=== PATIENT | male | born 1960 | race Hispanic/Latino ===

== ENCOUNTER → 2023-03-15 | Outpatient (CLI) | payer OTHER ==
[2023-03-15 08:51] LABS: INR < 0.93 (0.85-1.15)
[2023-03-15 08:52] LABS: PARTIAL THROMBOPLASTIN TIME 32.7 SEC (26.3-35.5)
== END | disposition home or self-care (01) ==
LOC: RAH 08:06
PROVIDERS: ATTEND Student in an Organized Health Care Education/Training Program
DX: R59.0 Localized enlarged lymph nodes (principal); Z79.01 Long term (current) use of anticoagulants; Z79.899 Other long term (current) drug therapy
CPT/HCPCS: 36415; 38505; 76942; 85610; 85730; 88184; 88185; 88189; 88305; 88341; 88342; 88360

== ENCOUNTER → 2023-09-09 | Outpatient (CLI) | payer OTHER | END | disposition home or self-care (01) | LOC: RAH 13:13 | PROVIDERS: ATTEND Student in an Organized Health Care Education/Training Program | DX: R59.0 Localized enlarged lymph nodes (principal) | CPT/HCPCS: 76882 ==

== ENCOUNTER → 2023-10-29 | Outpatient (CLI) | payer OTHER | END | disposition home or self-care (01) | LOC: RAH 13:16 | PROVIDERS: ATTEND Student in an Organized Health Care Education/Training Program | DX: R59.0 Localized enlarged lymph nodes (principal) | CPT/HCPCS: 76882 ==

== ENCOUNTER 2024-02-07 06:40 | Day surgery (SDC) | payer OTHER ==
[2024-02-03 09:40] LABS: BASOPHILS # (AUTO) 0.05 K/uL (0.00-0.20); BASOPHILS % (AUTO) 0.5 % (0.0-5.0); EOSINOPHILS # (AUTO) 0.44 K/uL (0.00-0.70); EOSINOPHILS % (AUTO) 4.5 % (0.0-8.0); HEMATOCRIT 43.6 % (42-54); IMMATURE GRANULOCYTE ABSOLUTE 0.03 K/uL (0-1); LYMPHOCYTES # (AUTO) 1.9 K/uL (1.0-4.8); LYMPHOCYTES % (AUTO) 19.7 % (21.0-51.0); MEAN CORPUSCULAR HGB CONC 33.9 g/dL (32.0-36.0); MEAN CORPUSCULAR VOLUME 91.4 fL (79-99); MONOCYTES # (AUTO) 0.6 K/uL (0.1-1.0); MONOCYTES % (AUTO) 6.4 % (3.0-13.0); NEUTROPHILS # (AUTO) 6.7 K/uL (1.8-7.7); NEUTROPHILS % (AUTO) 68.6 % (40.0-77.0); PLATELET COUNT (AUTO) 309 K/uL (130-400); RED BLOOD CELL COUNT(AUTO) 4.77 MIL/uL (4.50-6.20); WHITE BLOOD COUNT (AUTO) 9.7 K/uL (4.8-10.8)
[2024-02-03 09:50] LABS: APPEARANCE,URINE CLEAR (CLEAR); BILIRUBIN,URINE NEGATIVE (NEGATIVE); COLOR,URINE LIGHT-YELLOW (YELLOW); GLUCOSE, URINE (UA) NEGATIVE (NEGATIVE); KETONES,URINE NEGATIVE (NEGATIVE); LEUKOCYTE ESTERASE ,URINE 25 Leu/uL (NEGATIVE); NITRATE,URINE NEGATIVE (NEGATIVE); OCCULT BLOOD,URINE NEGATIVE (NEGATIVE); PH,URINE 6.5 (5.0-8.0); PROTEIN,URINE NEGATIVE (NEGATIVE); UROBILINOGEN,URINE 0.2 mg/dL (0.2-1.0)
[2024-02-03 09:55] LABS: ALBUMIN 3.9 g/dL (3.5-5.0); BILIRUBIN,TOTAL 0.4 mg/dL (0.2-1.0); CREATININE 0.9 mg/dL (0.5-1.3); POTASSIUM 4.5 mmol/L (3.5-5.1); TOTAL PROTEIN, SERUM 7.6 g/dL (6.0-8.3)
[2024-02-03 10:05] VITALS: BP 139/68; PULSE 53; RESP 16; TEMP 97.5
[2024-02-03 10:08] LABS: INR 0.96 (0.85-1.15); PROTHROMBIN TIME 10.2 SEC (9.6-11.6)
[2024-02-03 10:10] LABS: ADD UA MICROSCOPIC YES
[2024-02-03 10:12] LABS: MUCUS,URINE RARE LPF (None Seen)
[2024-02-07] VITALS (17 sets, daily range): BP systolic 100–142; BP diastolic 53–84; PULSE 48–62; RESP 14–18; TEMP 96.9–97.9
[~2024-02-07] VITALS: Ht 172.7 cm; Wt 82.8 kg
[~2024-02-07 06:40] MED LIST: ACET-66 PO; AEC81 PO; AMLO-257 PO; ATOR40TA69 PO; CHOL200074 PO; HYDR12.54 PO; MULT1CAP17 PO; OMEP20CA12 PO; RAMI10CA76 PO
[2024-02-07] MEDS ORDERED: EPINEPHrine PF 1MG (1:1,000) 1 MG/ML AMP ONE (07:23)
[2024-02-07] MEDS ORDERED: BUPIvacaine/PF 0.5% 30ML VIAL ONE (07:23)
[2024-02-07] MEDS: LACTATED RINGERS 1000ML 1,000 ML IV ONE (07:52)
[2024-02-07] MEDS: ceFAZolin SODIUM 2 GM VIAL ONE (07:52)
[2024-02-07] MEDS ORDERED: MIDAZOLAM HCL 1 MG/ML 2ML VIAL ONE (08:06)
[2024-02-07] MEDS ORDERED: proPOFol 10 MG/ML 20ML VIAL IV ONE (08:06)
[2024-02-07] MEDS ORDERED: LIDOCAINE PF 100MG/5ML (2%) SYRINGE 5ML ONE (08:06)
[2024-02-07] MEDS ORDERED: FENTanyl CITRate PF 50 MCG/1 ML 2ML VIAL ONE ×2 (08:06→08:32)
[2024-02-07] MEDS ORDERED: rocuRONium bROMide 10MG/1ML 5ML VL ONE (08:12)
[2024-02-07] MEDS ORDERED: ketaMINE 50MG/ML SYRINGE 50 MG/ML DISP.SYRIN ONE (08:26)
[2024-02-07] MEDS: MEPERIDINE-PF 25 MG/ML SYG ONE (09:26)
[2024-02-07] MEDS: ondanSETRON 4MG INJ ONE (09:26)
== END 2024-02-07 10:35 | disposition home or self-care (01) ==
LOC: DAH 06:40
PROVIDERS: ATTEND Student in an Organized Health Care Education/Training Program
DX: R59.0 Localized enlarged lymph nodes (principal); I10 Essential (primary) hypertension; E66.9 Obesity, unspecified; Z79.82 Long term (current) use of aspirin; Z79.01 Long term (current) use of anticoagulants; Z79.899 Other long term (current) drug therapy
CPT/HCPCS: 80053; 85025; 85610; 81001; 36415 ×2; 93005; 38500; 82948; 88323; 88364; 88307; 88342; 88365; 88341; A6260; A4663; J7030; J7120 ×2; A4452; J3010; J3490 ×2; J2250; J2704; J2405; J2175; J0690; A4215; A4223; A4222; A4221; A4600; J0171; G0168; J0665

== ENCOUNTER → 2025-02-17 | Outpatient (CLI) | payer OTHER ==
--- NOTE | 2025-02-17 17:34 | HMCIMG ---
EXAM: MR RIGHT SHOULDER WITHOUT CONTRAST CLINICAL HISTORY: 64 year old female, impingement syndrome of the right shoulder TECHNIQUE: Multiplanar multisequence magnetic resonance images were obtained WITHOUT contrast. CONTRAST: None COMPARISON: None FINDINGS: JOINTS: Moderate to severe degenerative changes of the acromioclavicular joint with capsular hypertrophy and encroachment on the supraspinatus. BONE: No acute fracture or focal osseous lesion. SOFT TISSUES: There is moderate tendinopathy of the supraspinatus, infraspinatus, and subscapularis. Partial bursal surface fraying of the supraspinatus tendon is seen. IMPRESSION: 1. Moderate to severe degenerative changes of the acromioclavicular joint with capsular hypertrophy and encroachment on the supraspinatus. 2. Moderate tendinopathy of the supraspinatus, infraspinatus, and subscapularis with partial bursal surface fraying of the supraspinatus tendon. /[place]
== END | disposition home or self-care (01) ==
LOC: RAH 12:22
PROVIDERS: ATTEND Student in an Organized Health Care Education/Training Program
DX: M19.011 Primary osteoarthritis, right shoulder (principal); M75.41 Impingement syndrome of right shoulder
CPT/HCPCS: 73221

== ENCOUNTER 2025-04-16 07:38 | Day surgery (SDC) | payer OTHER ==
[2025-04-14 08:54] LABS: INR <= 0.93 (0.85-1.15)
[2025-04-14 09:08] VITALS: BP 147/62; PULSE 54; RESP 13; TEMP 97.7
[2025-04-16] VITALS (16 sets, daily range): BP systolic 139–154; BP diastolic 68–82; PULSE 58–65; RESP 13–18; TEMP 97.3–97.8
[~2025-04-16] VITALS: Ht 168.9 cm; Wt 86.7 kg
[~2025-04-16 07:38] MED LIST changes: -ATOR40TA69 PO; +CHOL100046 PO; -CHOL200074 PO; +[UNRECOGNIZED DRUG - REMARK] PO
[2025-04-16] MEDS ORDERED: LIDOCAINE PF 100MG/5ML (2%) SYRINGE 5ML ONE (08:37)
[2025-04-16] MEDS ORDERED: GLYCOPYRROLATE 0.2 MG/ML 5 ML VIAL ONE (08:37)
[2025-04-16] MEDS ORDERED: NEOSTIGMINE METHYLSULFATE 1MG/ML IV ONE (08:37)
[2025-04-16] MEDS ORDERED: SUCCINYLCHOLINE CHLORIDE 20 MG/ML 10 ML VIAL ONE (08:37)
[2025-04-16] MEDS ORDERED: ALBUMIN (HUMAN) 5% 250 ML IV ONE (08:40)
[2025-04-16] MEDS ORDERED: MIDAZOLAM HCL 1 MG/ML 2ML VIAL ONE (08:43)
[2025-04-16] MEDS ORDERED: SUGAMMADEX SODIUM 200 MG/2 ML VIAL IV ONE (08:44)
[2025-04-16] MEDS ORDERED: FAMOTIDINE 20MG VIAL IV ONE (08:45)
[2025-04-16] MEDS ORDERED: HYDR-4060 PO (09:38)
[2025-04-16] MEDS ORDERED: CYCL5TAB3 PO (09:38)
[2025-04-16] MEDS: LACTATED RINGERS 1000ML 1,000 ML IV ONE (09:55)
--- NOTE | 2025-04-16 13:26 | NUR ---
Full and complete discharge instructions given to Patient and Family both verbally and in writing. Explained Surgical procedure precautions and follow up. Shoulder incision site clean dry and intact. No evidence of bleeding, bruising or hematoma. Sling appropiate and Patient Neurovascularly intact. All questions answered. PIV removed with catheter tip intact. at bedside appearing supportive. W/C to POV with to home
--- NOTE | 2025-04-16 14:59 | OP ---
Operative Note: DATE OF PROCEDURE: 04/16/25 SURGEON: TOM DAVILA MD FERMENTATION OPERATOR: IAIN Vitale ANESTHESIA: General and interscalene block ANESTHESIOLOGIST/VENDING MACHINE SERVICER: Roger Gupta CRNA PREOPERATIVE DIAGNOSIS: Right shoulder subacromial impingement and acromioclavicular joint osteoarthritis POSTOPERATIVE DIAGNOSIS: Right shoulder subacromial impingement, acromioclavicular joint osteoarthritis, degenerative labral tearing PROCEDURE: Right shoulder arthroscopy with labral debridement, subacromial decompression, distal clavicle excision ESTIMATED BLOOD LOSS: 2 cc INDICATIONS: 65-year-old male with a right shoulder pain being managed with a recurrent subacromial steroid injections. Patient had received numerous injections in underwent an MRI to evaluate the pathology use he had began to her receive too many steroid injections. He was found on MRI to have large distal clavicular osteophytes causing mass effect on the rotator cuff. After the discussion of risks, benefits, and alternatives, the patient voluntarily agreed to undergo the aforementioned procedure. FINDINGS: On insertion of the arthroscope into the joint we noted there to be significant degenerative fraying of the labrum. The biceps tendon insertion there was some yellowish discoloration of the labrum that was firm to probing. We noted there to be a partial-thickness tear of the supraspinatus in its midportion. We debrided the labrum back to a stable leading edge as well as the rotator cuff. This appeared to be a low-grade partial-thickness tear. We noted some grade 2 chondromalacia changes that were diffuse throughout the glenoid. We then repositioned the arthroscope into the subacromial space and performed our subacromial decompression distal clavicle excision and resection of the osteophytes. We noted there to be significant bursal tissue present with very tight space at the acromioclavicular joint with a inferiorly projecting osteophytes as was of the anterolateral corner of the acromion. DESCRIPTION OF PROCEDURE: Patient was properly identified in the preoperative holding area. Surgical site marking was verified and surgery consent reviewed. The patient was then taken to the operating room and placed in supine position on the OR table. After induction of general anesthesia, preoperative antibiotics were given, all bony prominences were well-padded as the patient was transitioned into beachchair position. The right upper extremity was then prepped and draped in usual sterile fashion. Surgical timeout was done verifying correct surgery, side, site, and location to be performed. We then began the procedure by using an 18-gauge spinal needle to inject the shoulder joint with normal saline to distend the joint capsule. A posterior lateral portal was established using 11 blade and we inserted our arthroscope through this portal. We established an anterior portal using needle localization under direct visualization and placed a working cannula through this portal. We then performed a diagnostic arthroscopy with the aforementioned findings. We then evaluated the tear of the labral tissue and noted degenerative fraying with stable underlying tissue. This was debrided back to a stable leading edge using the shaver device and the Arthrocare wand. There was some under-surface tearing of the supraspinatus as well that was also debrided with the Arthrocare wand. The arthroscope was repositioned into the subacromial space and a lateral working portal was established using a spinal needle for localization. Using a combination of shaver and electrocautery devices, we performed our subacromial decompression to resect bursal tissue and 1 to 2 mm of bone from the subacromial region. We removed the anterior lateral spurring from the acromial edge. Once we were happy with our subacromial decompression, we began to focus our attention on the distal clavicle. We then used the bur device to resect the inferiorly projecting bone spurs at the acromioclavicular joint and approximately the lateral 8 mm of bone off of the distal clavicle. We then removed as much of the arthroscopic fluid as possible and removed the arthroscopic instruments and camera. We expressed some the remaining fluid from the surrounding soft tissues. 3-0 nylon was then used to close the skin portals. Sterile soft dressing was applied. Patient was then placed into a shoulder immobilizer, awakened from anesthesia, and taken the recovery room in stable condition. TOM DAVILA MD Apr 16, 2025 14:59
== END 2025-04-16 13:27 | disposition home or self-care (01) ==
LOC: DAH 07:38
PROVIDERS: ATTEND Student in an Organized Health Care Education/Training Program
DX: M75.41 Impingement syndrome of right shoulder (principal); M19.011 Primary osteoarthritis, right shoulder; M75.111 Incomplete rotator cuff tear or rupture of right shoulder, not specified as traumatic; M94.211 Chondromalacia, right shoulder; I10 Essential (primary) hypertension; E78.5 Hyperlipidemia, unspecified; Z87.891 Personal history of nicotine dependence; Z79.01 Long term (current) use of anticoagulants; Z88.1 Allergy status to other antibiotic agents; Z79.899 Other long term (current) drug therapy; Z98.890 Other specified postprocedural states
CPT/HCPCS: 85610; 85730; 36415; 64415; 29824; 29826; A4663; J7030; P9045; J7120; J1308; J3010 ×2; J1100; J0330; J0169 ×2; J3490 ×4; J2003; J2250; J2704; J2405; J2710; J2795; J2371; J0690 ×2; A6223; A4649; A4215 ×2; A4223; A4222; A4221; A4450